=== PATIENT | male | born 1930 | race Caucasian/White ===

== ENCOUNTER → 2016-12-01 | Outpatient (CLI) | payer MEDICARE ==
[~2016-12-01] MED LIST: AMBIEN PO; CIALIS PO; IBUPROFEN PO; LANSOPRAZOLE30 M2 PO; LANSOPRAZOLE30 MG PO; LORTAB 10/500 T1 TAB PO; MULTI-DAY1 TAB PO; NEXIUM PO; TYLENOL325 M1 PO; ZOCOR PO; [UNRECOGNIZED DRUG - OTHER] PO
--- NOTE | ~2016-12-01 | TH ---
Unit #: [id number] #: [id number] Patient: POLLY PEÑALOZA [id number] [facility]. [place] [address] [place], [place] [address] [id number] O MR#: [id number] NAME: POLLY PEÑALOZA : 1930 SEX: M STUDY DATE/TIME: 12/01/2016 UNIT: [facility] ROOM: STUDY DESCRIPTION: Exercise stress test - Nuclear Attending Physician: Brandon Lowe M.D. Primary Care Physician: Jose Oconnor M.D. CARDIOLOGY REPORT PROCEDURE PERFORMED Exercise Cardiolite stress test - Nuclear portion. PROCEDURE Using technetium 99m-labeled Cardiolite, rest and stress SPECT images were obtained. Multiple SPECT images were obtained in various views, including horizontal and vertical long axis and short axis views of the left ventricle. Images were obtained by gated SPECT method. The patient was administered 12 mCi of Cardiolite at rest. The patient was administered 30.7 mCi of Cardiolite at peak exercise. Total exercise time is 8 minutes. On the stress images, there is a small area of moderately decreased tracer uptake activity inferiorly. The rest images show a larger area of moderately decreased tracer uptake activity inferiorly. Comparing the rest and stress images, there is a small area of predominantly fixed defect seen inferiorly, most likely due to soft tissue artifact. No obvious stress-induced ischemia noted. The left ventricular ejection fraction is calculated to be 57%. There is no focal wall motion abnormality seen. CONCLUSION 1. No stress-induced ischemia noted. 2. There is a small area of predominantly fixed defect seen inferiorly, most likely due to soft tissue artifact. 3. The left ventricular ejection fraction is calculated to be 57%. 4. There is no focal wall motion abnormality seen. 5. Normal exercise Cardiolite stress test. 6. Technically limited study due to the patient's body habitus. Clinical correlation is requested. Dictated by.Ivette Burroughs TD: 12/01/2016 13:19 JOB #: [id number] Unit #: [id number] #: [id number] Patient: POLLY PEÑALOZA CARDIOLOGY REPORT Page 1 of 1 X Qing Morillo MD <ELECTRONICALLY SIGNED> 01/20/17 1429 CARDIOLOGY REPORT
--- NOTE | ~2016-12-01 | ST ---
Unit #: [id number] #: [id number] Patient: POLLY PEÑALOZA [id number] [place] [address] [facility]. [place], [place] [address] [id number] O MR#: [id number] NAME: POLLY PEÑALOZA : 1930 SEX: M STUDY DATE/TIME: 12/01/2016 UNIT: [facility] ROOM: STUDY DESCRIPTION: Attending Physician: Brandon Lowe M.D. Primary Care Physician: Jose Oconnor M.D. CARDIOLOGY REPORT EXAM Exercise Cardiolite stress test. FINDINGS Baseline EKG: Sinus bradycardia, heart rate 58 beats per minute, left bundle branch block, poor R-wave progression, mild left atrial abnormality. PROCEDURE Patient walked on the treadmill for eight minutes utilizing Pradeep protocol, achieving a workload of 10.1 METs. Next, 91% of maximum target heart rate achieved at 123 beats per minute with a maximum blood pressure response of 180/92 mmHg. Next, EKG during the test was equivocal to baseline. No acute ischemic changes. Patient had no complaints of chest pain, palpitations, or dizziness. Had increased shortness of breath and fatigueness which resolved in recovery phase. IMPRESSION 1. Functional class III with a workload of 10.1 METs. 2. Patient walked for 8 minutes achieving 91% of maximum target heart rate at 123 beats per minute with a blood pressure response of 180/92 mmHg. It is noted at the end of recovery phase the patient's blood pressure was 160/70 mmHg. 3. EKG during the test was equivocal to baseline. No acute ischemic changes. 4. Patient had no complaints of chest pain, palpitations, or dizziness. Had increased shortness of breath and fatigueness which resolved in recovery phase. 5. Cardiolite was injected after Lexiscan within the first minute of the test. Radionuclide tests pending. Please correlate with nuclear images. Dictated by... Sanjana Nair A.P.R.NGogo for Ivette Camejo TD: 12/01/2016 12:06 JOB #: [id number] Unit #: [id number] #: [id number] Patient: POLLY PEÑALOZA CARDIOLOGY REPORT Page 1 of 1 X Sanjana Nair APRN CARDIOLOGY REPORT
== END | disposition home or self-care (01) ==
LOC: CNUC 08:21
DX: R94.31 Abnormal electrocardiogram [ECG] [EKG] (principal); I10 Essential (primary) hypertension; R53.83 Other fatigue; I51.7 Cardiomegaly; I50.30 Unspecified diastolic (congestive) heart failure; I35.1 Nonrheumatic aortic (valve) insufficiency; I36.1 Nonrheumatic tricuspid (valve) insufficiency
CPT/HCPCS: 78452; 93017; 93306; A9500